=== PATIENT | female | born 1940 | race Caucasian/White ===

== ENCOUNTER → 2016-11-16 | Outpatient (CLI) | payer MEDICARE, OTHER ==
--- NOTE | ~2016-11-16 | ECHO ---
Transthoracic Echocardiography Report (TTE) Demographics Patient Name SHERRY WEI Date of Study 11/16/2016 Patient Number [id number] Visit Number [id number] Date of 1940 Room Number Accession Number [id number] Gender Female Age 76 year(s) Referring Doroteo Friend MD Credit Union Manager Enedina Edwards Physician RVT Physician Interpreting Bere Bush MD Design And Sales Consultant Physician Supervising Ordering Physician Doroteo Friend MD/MLP Nurse Stress Supervisor [employer] Conclusions Summary The estimated left ventricular ejection fraction is 55%. Procedure Type of Study TTE procedure:Echo Limited w/o Contrast. Procedure Date Date: 11/16/2016 Start: 11:16 AM Indications:High Risk Medication Use. Patient Status: Routine Rhythm: Within normal limits HR: 94 bpm BP: 118/50 mmHg M-Mode/2D Measurements LV Diastolic Dimension: 3.27 cm LV Systolic Dimension: 2.43 cm LV Septum Diastolic: 0.94 cm LV PW Diastolic: 1 cm AO Root Dimension: 2.5 cm AV Cusp Separation: 1.5 cm RV Diastolic Dimension: 2.4 cm LA Dimension: 2.5 cm LVOT: 1.9 cm Findings Left Ventricle Normal left ventricle size and function. Diastolic assessment reveals Grade I diastolic dysfunction. Left Atrium Normal left atrial size. Signature dtt: Eleazar Blackburn (cardio) dtd: 11/16/16 1116 Physician Self Edit
== END | disposition disaster alternative care site (69) ==
LOC: GCAR 10:45
DX: C48.2 Malignant neoplasm of peritoneum, unspecified (principal); Z79.899 Other long term (current) drug therapy